=== PATIENT | female | born 1990 | race Asian ===

== ENCOUNTER 2024-12-14 10:38 | Emergency (ER) | payer SELFPAY ==
[2024-12-14 10:44] VITALS: BP 119/77; PULSE 67; RESP 19; TEMP 36.4; O2SAT 100
--- NOTE | 2024-12-14 10:44 | ED.GENADULT ---
HPI - General Adult General Chief complaint: Syncope Stated complaint: Faint/Cut Finger Time Seen by Provider: 12/14/24 10:40 Source: patient and RN notes reviewed Mode of arrival: ambulatory Limitations: no limitations History of Present Illness HPI narrative: 34-year-old female presents to the [facility] with and other family member with complaints of a superficial cut to the left 2nd finger as well as a syncopal episode that occurred about 10:10 today. reports that she was standing at the counter, passed out, fell to the floor, ?turned green, vomited and was out for approximately 10 minutes. denies her hitting head. denies that she did any type of shaking or abnormal body movements. Patient currently denies any chest pain, neck pain, back pain. Patient denied any symptoms prior to it, Denied chest pain, shortness of breath, dizziness, headache. Patient appears extremely drowsy on arrival. Does have a superficial cut to the radial aspect side of the 2nd finger left hand nail. Bleeding is controlled, clean by RN Onset (ago): minute(s) Related Data Home Medications ?Medication ?Instructions ?Recorded ?Confirmed ?Last Taken ?Type No Home Medications 12/14/24 12/14/24 Unknown History Allergies Allergy/AdvReac Type Severity Reaction Status Date / Time No Known Allergies Allergy Verified 12/14/24 10:54 Review of Systems Review of Systems: All systems reviewed & are unremarkable except as noted in HPI and below Constitutional: Constitutional: Reports no additional constitutional complaints ENT: Reports system reviewed and no additional complaints, except as documented Cardiovascular: Cardiovascular: Reports no additional cardiovascular complaints, Denies chest pain and Denies dyspnea Respiratory: Respiratory: Reports no additional respiratory complaints, Denies chest congestion, Denies cough and Denies dyspnea Musculoskeletal: Musculoskeletal: Reports no additional musculoskeletal complaints Integumentary/Breasts: Skin/Breast: Reports as per HPI Neurologic: Reports as per HPI, Reports confusion and Reports syncope PMFSH Comments At the time of my signature, I reviewed and agree with the nursing past medical, surgical, social, and family history. There is no relevant family history pertinent to the patient complaint. Exam Const: General: healthy appearing, no acute distress, well developed, tired appearing and well nourished Nutritional Appearance: well nourished Orientation/consciousness: oriented to person and oriented to place Limitations: language barrier ( interpreting) HENMT: Head: normal to inspection Mouth: Yes Normal oral and palatal mucosa present, Yes lip normal, Yes tongue normal and Yes moist mucous membranes Eyes: General: appearance normal, both eyes and all related structures Alignment and Position: alignment normal Neck: Neck: normal visual inspection, full ROM, no lymphadenopathy and no meningeal signs Chest: Chest palpation & inspection: normal inspection of the chest Resp: Effort & Inspection: normal respiratory effort and able to speak in complete sentences Auscultation: clear to auscultation bilaterally, no crackles, no rales, no rhonchi and no wheezes Cardio: Rate: bradycardic Back/Spine/Pelvis: Cervical Spine: cervical ROM normal and No Cervical spine tenderness Thoracic/Lumbar Spine: No thoracic spinal tenderness and No lumbar spinal tenderness Skin: General skin exam: normal color and no rashes or lesions noted Other: Superficial wound side of nail 2nd finger left hand Neuro: General: oriented to person, oriented to place, No gait normal, moves all extremities, no meningeal signs and no focal motor deficits Cranial nerves: Yes Equal, round and reactive pupils present, Yes Nystagmus not present, Yes Normal facial strength present, Yes facial symmetry and Yes Midline tongue present Cognition (Neuro): normal cognition Speech: No normal speech (delayed response) Gait exam (Neuro): Assisted gait required other (X2 ) Motor exam (neuro): Pronator motor function not present, No tremor noted and Normal motor muscle tone present throughout Pupils: Normal pupillary reactivity/response: bilateral Extrem: General: normal to inspection, full ROM and capillary refill normal Right upper extremity: normal to inspection and full ROM Left upper extremity: normal to inspection and full ROM Right lower extremity: normal to inspection and full ROM Left lower extremity: normal to inspection and full ROM Psych: Appearance: grossly normal and well kempt Mental Status: mental status grossly normal Speech and movement: Normal speech and movement present and Clear speech present Affect: normal affect Attitude: cooperative Course Course Level of Care: Express Care Visit Vital Signs Vital signs: Vital Signs Temperature 97.6 F 12/14/24 10:44 Pulse Rate 67 12/14/24 10:44 Respiratory Rate 19 12/14/24 10:44 Blood Pressure 119/77 12/14/24 10:44 Pulse Oximetry 100 12/14/24 10:44 Oxygen Delivery Room Air 12/14/24 10:44 Temperature 97.6 F 12/14/24 10:44 Pulse Rate 67 12/14/24 10:44 Respiratory Rate 12/14/24 10:44 Blood Pressure 119/77 12/14/24 10:44 Pulse Oximetry 100 12/14/24 10:44 Oxygen Delivery Room Air 12/14/24 10:44 Reviewed Medical Decision Making MDM Narrative Medical decision making narrative: Due to loss of consciousness advised EMS transfer, family members declined. Patient with a syncopal episode prior to arrival, 10 minutes loss of consciousness per family sending for higher level of care Transfer instructions reviewed with patient and family to go directly to the ER. All questions have been answered, and the patient deny any further questions with discharge and discharge plan. Some parts of this dictation were generated by voice recognition software and may contain typographical and/or grammatical inaccuracies. Differential Diagnosis Differential Diagnosis: Syncope, decreased blood sugar, orthostatic hypertension, bradycardia, fainted due to blood Medical Records Medical records reviewed: Yes I reviewed the external patient's medical records. Vital Signs Vital Signs: Vital Signs Temperature 97.6 F 12/14/24 10:44 Pulse Rate 12/14/24 10:44 Respiratory Rate 12/14/24 10:44 Blood Pressure 119/77 12/14/24 10:44 Pulse Oximetry 100 12/14/24 10:44 Oxygen Delivery Room Air 12/14/24 10:44 Temperature 97.6 F 12/14/24 10:44 Pulse Rate 12/14/24 10:44 Respiratory Rate 12/14/24 10:44 Blood Pressure 119/77 12/14/24 10:44 Pulse Oximetry 100 12/14/24 10:44 Oxygen Delivery Room Air 12/14/24 10:44 Reviewed Lab Data Lab results reviewed: Yes I reviewed the patient's lab results. Labs: Lab Results 12/14/24 Range/Units 10:49 POC Capillary Glucose 146 H (65-105) mg/dl Reviewed ECG Data EKG #1: Attestation: I personally reviewed and interpreted this ECG as follows: ECG completion date: 12/14/24 ECG completion time: 10:58 Prior ECG tracings: not available for review Interpretation: Sinus bradycardia, ventricle rate of 55, AR interval 144, QRS duration 94. No ST elevation or depression noted Critical Care Time Critical Care Time Critical Care Time: No Discharge Plan Discharge Clinical Impression: Syncope, Abrasion of finger of left hand Patient Disposition: Acute Care Hospital Condition: Stable Patient Language: Maltese Prescriptions: No Action No Home Medications Follow-up/Referrals: Jose Alberto,Mert Villalta MD [Primary Care Provider] -
[2024-12-14 10:53] LABS: Glucose Point of Care 146 mg/dl (65-105)
--- NOTE | 2024-12-14 10:56 | ECG_ITS ---
Test Date: 2024-12-14 10:58:28 Measurements Intervals [place] Rate: 55 P: 57 HI: 144 QRS: 34 QRSD: 94 T: 21 QT: 442 QTc: 424 Interpretive Statements SINUS BRADYCARDIA No previous ECG available for comparison Electronically Signed On 12-14-2024 14:25:27 CDT by Jasper Hernandez M.D.
== END 2024-12-14 11:04 | disposition short-term general hospital (02) ==
LOC: EXPGOSH 10:42
PROVIDERS: Emergency Provider Nurse Practitioner; PCP Internal Medicine Cardiovascular Disease
DX: R55 Syncope and collapse (principal); S60.411A Abrasion of left index finger, initial encounter; X58.XXXA Exposure to other specified factors, initial encounter
CPT/HCPCS: 82948; 93005; 99213; G0463

== ENCOUNTER 2024-12-14 11:35 | Emergency (ER) | payer SELFPAY ==
--- NOTE | ~2024-12-14 | XR_ITS ---
EXAMINATION: XR chest 2V 12/14/2024 13:34 INDICATION: Syncope PROCEDURE: 2 view chest COMPARISON: No prior studies for comparison. FINDINGS: The lungs are clear. The cardiomediastinal silhouette is within normal limits. There are no pleural effusions. There is no pneumothorax suspected. IMPRESSION: 1: NO ACUTE CARDIOPULMONARY DISEASE. Reviewed, dictated and finalized at location A.
--- NOTE | ~2024-12-14 | CT_ITS ---
EXAMINATION: CT brain wo con DATE: 12/14/2024 13:34 INDICATION: Syncope TECHNIQUE: Computed tomography (CT) of the head was performed without intravenous contrast. Sagittal and coronal reconstructions were performed. The mA was adjusted according to patient size. Iterative reconstruction technique was employed. The dose-length product was 605.33 mGy-cm. COMPARISON: None FINDINGS: No acute intracranial hemorrhage, acute infarction or abnormal extra axial fluid collection. Ventricl es are normal and symmetric. No mass/mass effect. The orbits, paranasal sinuses and mastoid air cells are normal. IMPRESSION: 1. Normal brain. Reviewed, dictated and finalized at location A. IMPRESSION: 1. Normal brain.
--- OUTSIDE RECORDS SUMMARY | 2024-12-14 11:40 | XMS_ITS | Clinical Summary ---
Author Organization [facility] Address [address] [place] [address] Care Team Providers Care Accounts Payable Administrator Name Role Phone Unavailable Primary Care Provider Unavailabl e Allergies No known active allergies Medications loratadine (CLARITIN) 10 mg tablet 1 Tab daily. 01/13/2014 Active ranitidine HCl (ZANTAC) 150 mg Capsule Take 1 Cap by mouth 2 times daily. 60 Cap 1 02/07/2014 Active BIOTIN/SILIC/CY BISWAS/LUT/MVMIN (DNJS-QHOUS-SIJ TEIN-LUT-MV,MIN ORAL) Take by mouth. Active ibuprofen (MOTRIN) 400 mg tablet Take 2 Tablets (800 mg) by mouth every 6 hours as needed for Pain or Temperature. 30 Tablet 08/20/2019 Active acetaminophen (TYLENOL) 500 mg tablet Take 2 Tablets (1,000 mg) by mouth every 6 hours as needed for Pain or Temperature. 30 Tablet 08/20/2019 Active Active Problems Problem Noted Date Diagnosed Date Skin rash 11/16/2014 Itchy scalp 11/16/2014 Breast lump 02/07/2014 GERD (gastroesophageal reflux disease) 4 Sore throat 01/19/2014 Family History Medical History Relation Name Comments Hypertension Father Heart Disease Maternal Grandmother Hypertension Mother Relation Name Status Comments Father Maternal Grandmother Mother Social History Tobacco Use Types Packs/Day Years Used Date Smoking Tobacco: Never Smokeless Tobacco: Never Alcohol Use Standard Drinks/Week Comments No 0 (1 standard drink = 0.6 oz pur e alcohol) Comments Unknown Sex and Gender Information Value Date Recorded Sex Assigned at Not on file Legal Sex Female 9:34 AM CDT Gender Identity Not on file Sexual Orientation Not on file Last Filed Vital Signs Vital Sign Reading Time Taken Comments Blood Pressure 113/69 08/20/2019 11:37 AM SENIOR JAVA DATA ARCHITECT Pulse 90 08/20/2019 12:51 PM SENIOR JAVA DATA ARCHITECT Temperature 37.6 C (99.6 F) 08/20/2019 12:51 PM SENIOR JAVA DATA ARCHITECT Respiratory Rate 16 08/20/2019 11:37 AM SENIOR JAVA DATA ARCHITECT Oxygen Saturation 97% 08/20/2019 11:37 AM SENIOR JAVA DATA ARCHITECT Inhaled Oxygen Concentration - - Weight 77.1 kg (170 lb) 08/20/2019 9:22 AM SENIOR JAVA DATA ARCHITECT Height 157.5 cm (5' 2) 08/20/2019 9:22 AM SENIOR JAVA DATA ARCHITECT Body Mass Index 31.09 08/20/2019 9:22 AM SENIOR JAVA DATA ARCHITECT Plan of Treatment Health Maintenance Due Date Last Done Comments HEPATITIS B VACCINES (1 of 3 - 19+ 3-dose series) 2007 HPV/Cotest (21-29) 2009 CERVICAL CANCER SCREENING 2018 HPV/Cotest (30-65) 2018 PAP SMEAR 2018 INFLUENZA VACCINE (#1) 2024 04/22/2018 DTAP/TDAP/TD VACCINES (2 - T d or Tdap) 06/01/2029 06/01/2019 HPV VACCINES Aged Out No longer eligi ble based on patient's age to complete this topic Insurance [facility]
--- OUTSIDE RECORDS SUMMARY | 2024-12-14 11:40 | XMS_ITS | Referral Summary ---
Author Organization [facility] Address [address] [place] [address] Care Team Providers Care Tax Appraiser Name Role Phone No, Physician Primary Care Provider [phone] Kenia Alfaro MD, Rolando Mccarty Unavailable Allergies No known active allergies Medications 28 mg iron- 800 mcg tablet Take 1 tablet by mouth daily 1 Active True Metrix Glucose Meter misc TEST FASTING AND 1 HOUR AFTER MEALS 0 Active pen needle, diabetic 33 gauge x 5/32 needle 1 INJECTION DAILY DIRECTED 30 each 1 Active PNV with ioepgvi-xsti-IL 27 mg iron- 1 mg tabletIndicatio ns:Vitamin Deficiency Prevention Take 1 tablet by mouth daily 30 tablet 11 1 Active acetaminophen 500 mg capsule Take 2 capsules (1,000 mg total) by mouth every 6 (six) hours as needed for pain 30 tablet 3 Active ibuprofen (ADVIL,MOTRIN) 600 mg tabletIndicatio ns:Cramps Take 1 tablet (600 mg total) by mouth every 6 (six) hours as needed for pain 30 tablet 3 Active polyethylene glycol (MIRALAX) 17 gram packetIndicatio ns:constipation Take 1 packet (17 g total) by mouth daily 15 packet 3 Active Active Problems Problem Noted Date Diagnosed Date care following vaginal delivery 07/28 Overview (07/30/2022): # ID: Afebrile. No signs/symptoms of infection. #COVID-19: Test not indicated # Heme: EBL 450 mL. No symptoms acute blood loss anemia. # CV/Pulm: Vital signs stable, within normal limits. # GI/: Tolerating PO. Voiding spontaneously. #GDMA2: regimen metformin and 5u of Levemir nightly. Fasting BG PPD1: 72. # Pain: Controlled with above regimen. # Post DVT prophylaxis: The patient has the following MAJOR risk factors none and the following MINOR risk factors BMI 30-39. SCDs ordered for VTE prophylaxis. # MOC: Declines until visit # MOF: Both formula and . Urine drug screen not indicated. Patient informed of results: N/A. # COVID Vaccination Status: Previously received # Disposition: Follow up task not sent. Desires discharge home today. Encounter for induction of labor 07/27/2022 Overview (07/28/2022): 1. Induction of labor for GDMA2. Current regimen: metformin and 5u Levemir nightly. On admission, BC 101 - insulin drip not indicated. OB insulin gtt ordered, for fasting BG ordered PP. Admit to L&D. Consents signed and placed in chart. Labs: CBC, RPR, T&S pending. Induction of labor with oxytocin. 2. FWB: Continuous monitoring. tracing category I 3. ID: 3rd trimester HIV (>28 wga) negative on 07/18. GBS positive, will start PCN on 07/09. RPR on admission: pending. Membrane Status: intact. 4. Indications for UDS: none. Verbal consent obtained for UDS: Not indicated 5. MOF: Plans to both breast and formula feed. Urine drug screen not indicated. Patient informed of results: N/A 6. MOC: Undecided on contraception. 7. Pain management: Desires epidural during painful contractions. 8. Post DVT prophylaxis: The patient has the following MAJOR risk factors none and the following MINOR risk factors BMI 30-39. SCDs will be ordered for VTE prophylaxis . 9. COVID Vaccine Status: Not assessed 10. COVID Test Status: Test not indicated Leakage of amniotic fluid 09/29/2020 Gestational diabetes mellitus (GDM), antepartum 08/29/2020 Overview (09/25/2020): Demetrius was diagnosed with GDM by a 1 hr GT > 200. Previously counseled Current regimen: Metformin 1000mg ER BID, NPH 10u qHS added 09/25/2020 Plan: - S/p diabetes education/nurtition - Recommend growth US every 4 weeks. - Recommend surveillance with once weekly NSTs starting at 32 weeks - Recommend IOL at 39 weeks for A2GDM- pt will discuss with primary OB tomorrow - GTT (6-12 weeks PP). Recommend testing with primary OB and delivery at 39 weeks. Spoke with RN with Dr. Aquino to review recommendations. Assessment & Plan (09/25/2020 1:35 PM LIDAR ANALYST): BS log reviewed with elevated fastings and breakfast PCs. Will start NPH 10u qHS today. hypoglycemic precautions reviewed. MFM RN to room for insulin teaching. Rx placed. Patient has appointment with primary OB tomorrow and will discuss timing for IOL. Assessment & Plan (09/11/2020 6:10 PM LIDAR ANALYST): BS log reviewed with Dr. Escudero. Plan for metformin ER 1000mg BID. Discussed importance of limiting high carb foods such as rice and noodles. Patient voiced understanding and will send a BS log in 1 week for review. Repeat visit and growth in 2 weeks. Pt aware if BS do not normalize following increase in metformin we will need to add insulin. Supervision of high-risk , unspecified trimester 08/29/2020 Overview (09/25/2020): [x] Co-management vs. [] Full MFM Care; [] Red Team [x] Blue Team Referring Provider: Rolando Aquino [phone] [] or Medicare Insurance [x] Dating Criteria: US 02/29/20 with ELIER 10/07/20 [x] Labs: Rh [O+], Ab [negative], Rubella [immune], HIV [non-reactive], HepBSAg [non-reactive], RPR [non-reactive], GC/CT [negative/negative] [x] Genetic Screenin04/25/20: Quad Screen: negative [x] CBC/Hgb 12.8/43.7/plt 290 [] Early 1hr GTT (if indicated) [x] UCx: 02/29/20 no growth [x] Pap: 02/29/20 NILM; HPV negative [] LD ASA (if indicated) starting at 12 weeks: [] PNBHS referral (if indicated) 2nd Tri Labs: [x] Anatomy ultrasound: [x] CBC/1hr gtt at 24-28wks: 07/06/20: 11.2/36.8/plt 246; GTT 243 [x] Flu Shot (Mar-Jun): given 06/05/20 [x] Tdap (27-36wks): given 07/06/20 3rd Tri Labs: per primary OB Counselling [x] MOD: Anticipate , recommend 39 week induction [x] Place of delivery: PVT with Dr. Aquino 02/09/2020 Acne 12/02/2017 Allergic rhinitis 11/25/2017 Obesity 11/25/2017 Skin rash 11/16/2014 Itchy scalp 11/16/2014 Breast lump 02/07/2014 GERD (gastroesophageal reflux disease) 4 Sore throat 01/19/2014 Abnormal liver function tests 11/04/2009 Resolved Problems Problem Noted Date Diagnosed Date Resolved Date care following vaginal delivery 09/29/2020 07/28/2022 Overview (10/01/2020): #GDMA2: fasting glucose PPD#1 106. For GTT at PPV. # ID: Afebrile. No signs/symptoms of infection. #COVID-19: Declined # Heme: EBL 550 mL. No symptoms acute blood loss anemia. # CV/Pulm: Vital signs stable, within normal limits. # GI/: Tolerating PO. Voiding spontaneously. # Pain: Controlled with above regimen. # Post DVT prophylaxis: The patient has the following MAJOR risk factors none and the following MINOR risk factors BMI 30-39. SCDs ordered for VTE prophylaxis. # MOC: Pt considering DMPA - declines prior to discharge, will discuss at appt. # MOF: # Disposition: Follow up to be scheduled with primary OB. Desires discharge home today. Immunizations Immunization Administration Dates Next Due Influenza, Unspecified 05/30/2020 [employer] ([employer]) SARS-CoV-2 Vaccination 05/07/2022 MMR 10/01/2020(Deferred: No longer n eeded) Social History Tobacco Use Types Packs/Day Years Used Date Smoking Tobacco: Never Smokeless Tobacco: Never Alcohol Use Standard Drinks/Week Comments Never 0 (1 standard drink = 0.6 oz pur e alcohol) Social Connection and Isolat ion Panel [NHANES] Answer Date Recorded In a typical week, how many times do you talk on the phone with family, friends, or neighbors? More than three times a week 07/29/2022 How often do you get togethe r with friends or relatives? More than three times a week 07/29/2022 How often do you attend chur ch or roman catholic services? Never 07/29/2022 Do you belong to any clubs o r organizations such as anabaptist groups, unions, fraternal or athletic groups, or school groups? No 07/29/2022 How often do you attend meet ings of the clubs or organizations you belong to? Never 07/29/2022 Are you , , di vorced, , never , or living with a partner? 07/29/2022 AUDIT-C Answer Date Recorded Q1: How often do you have a drink containing alc ohol? Never 09/29/2020 Average Number of Drinks Not on file 021 Frequency of Binge Drinking Not on file 09/18 Overall Financial Resource Strain (CARDIA) Answe r Date Recorded How hard is it for you to pa y for the very basics like food, housing, medical care, and heating? Not very hard 07/29/2022 Hunger Vital Sign Answer Date Recorded Within the past 12 months, y ou worried that your food would run out before you got the money to buy more. Never true 07/29/19 23 Within the past 12 months, t he food you bought just didn't last and you didn't have money to get more. Never true 07/29/2022 PRAPARE - Transportation Answer Date Re corded In the past 12 months, has l ack of transportation kept you from medical appointments or from getting medications? No 03/2023 In the past 12 months, has l ack of transportation kept you from meetings, work, or from getting things needed for daily living? No 07/29/2022 Housing Stability Vital Sign Answer Thanh e Recorded In the last 12 months, was t here a time when you were not able to pay the mortgage or rent on time? No 07/29/2022 In the last 12 months, how many places have you lived? 2 07/29/2022 In the last 12 months, was t here a time when you did not have a steady place to sleep or slept in a mcc (including now)? No 07/29/2022 Personal Safety Answer Date Recorded Getting School Help Needed Not on file 07/28 Comments No Sex and Gender Information Value Date Recorded Sex Assigned at Not on file Legal Sex Female 4:10 PM CDT Gender Identity Not on file Sexual Orientation Not on file Last Filed Vital Signs Vital Sign Reading Time Taken Comments Blood Pressure 122/80 07/30/2022 9:10 AM LIDAR ANALYST Pulse 75 07/30/2022 9:10 AM LIDAR ANALYST Temperature 36.7 C (98.1 F) 07/30/2022 9:10 AM LIDAR ANALYST Respiratory Rate 16 07/30/2022 9:10 AM LIDAR ANALYST Oxygen Saturation 98% 07/30/2022 9:10 AM LIDAR ANALYST Inhaled Oxygen Concentration - - Weight 91.5 kg (201 lb 12.8 oz) 023 11:55 PM LIDAR ANALYST Height 157.5 cm (5' 2) 07/27/2022 11:5 5 PM LIDAR ANALYST Body Mass Index 36.91 07/27/2022 11:55 PM LIDAR ANALYST Plan of Treatment Not on file Procedures Procedure Name Priority Date/Time Associated Diagnosis Comments EGFR STAT 07/27/2022 9:06 PM LIDAR ANALYST HEPATITIS C ANTIBODY Routine 02/29/2020 from Last 3 Months or Most Recently Relevant to Health Maintenance Results * eGFR (07/27/2022 9:06 PM LIDAR ANALYST) eGFR >90 90 - 130 mL/min/1. 73 m2 [facility] Comment: Interpretive Data Reference Interval Normal >/= 90 mL/min/1.73m2 Mildly decreased* 60 - 89 mL/min/1.73m2 Mildly to moderately decreased 45 - 59 mL/min/1.73m2 Moderately to severely decreased 30 - 44 mL/min/1.73m2 Severely decreased 15 - 29 mL/min/1.73m2 Kidney Failure < 15 mL/min/1.73m2 *Relative to young adult level Estimated glomerular filtration rate is determined by the 2020 CKD-EPI equation recommended by the National Kidney Foundation (A Unifying Approach to GFR Estimation: Recommendations of the NKF-ASK Task Force on Reassessing the Inclusion of Race in Diagnosing Kidney Disease, JASN 2020). The CKD-EPI equation should not be used for patients with unstable renal function and has not been validated in children and those over 70. Current interpretive data was last reviewed 2021. Blood 07/27/2022 9:06 PM LIDAR ANALYST 07/27/2022 9:53 PM LIDAR ANALYST us Dena Rivas MD LAB BLOOD ORDERABLES Fi nal Result [facility] Department [place] [address] * Hepatitis C antibody (02/29/2020) SCRIBED HCV ab non-reacti ve Blood specimen (specimen) us Rolando Aquino Jr., MD LAB MICROBIOLOGY - GENERAL ORDERABLES Final Result from Last 3 Months or Most Recently Relevant to Health Maintenance Insurance [facility] DUAL COMPLETE [id number] [facility] MEDICARE Address: [address] [place] [id number] [place] [address] Advance Directives For more information, please contact: [phone] * Full Code (Latest Code Status on File) Date Activated Date Inactivated Comments 07/28/2022 4:50 AM 07/30/2022 5:19 PM * Full Code Date Activated Date Inactivated Comments 07/27/2022 8:43 PM 07/28/2022 4:50 AM Full CPR in ca se of cardiopulmonary arrest * Full Code Date Activated Date Inactivated Comments 09/29/2020 7:35 AM 10/01/2020 9:37 PM * Full Code Date Activated Date Inactivated Comments 09/29/2020 1:57 AM 09/29/2020 7:35 AM Full CPR in case of cardiopulmonary arrest Care Teams Tax Appraiser Relationship Specialty Start Date End Date No, Physician PCP - General 04/25/20 Rolando Aquino Jr., MD [address] [place] [address] Referring Physician Obstetrics and Gynecology 04/25/20
--- OUTSIDE RECORDS SUMMARY | 2024-12-14 11:40 | XMS_ITS | Clinical Summary ---
Author Organization [facility] Address [address] [id number] Phone Care Team Providers Care Manager Software Name Role Phone Mehran Mera NP Primary Care Provider [phone] Allergies No known active allergies Medications Lancets 33G misc Lancets 33G Miscellaneous QTY: 100 each Days: 30 Refills: 2 Written: 05/12/22 Patient Instructions: use 1 lancet to check blood glucose fasting and 1hr after all meals 05/12/20 22 Active loratadine (Claritin) 10 MG tablet Take 1 tablet by mouth in the morning. 01/14/20 14 Active cetirizine (ZyrTEC) 10 MG tablet Take 1 tablet (10 mg) by mouth in the morning. 30 tablet 2 09/19/19 Active phentermine 15 MG capsule Take 15 mg by mouth before breakfast. 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 ) ([facility] 07/03/2022 Overview (07/03/2022): Given triamcinolone ointment rx Susceptible to varicella (no n-immune), currently ([facility]) 03/18/2022 ([facility]) 10/28/2021 Supervision of high-risk pre gnancy, unspecified trimester ([facility]) 08/29/2020 Gestational diabetes mellitus (GDM), antepartum ([facility]) 08/03/2020 Overview (07/03/2022): Continue metformin 1000 mg BID Add levemir 2 units once daily (had rec'd 5 last visit, but did not start because she was unsure how to use pen, RN showed her today and based on glucose log, the dose was reduced) RTC 2 weeks. NST baseline 135, moderate variability, + accels, no decels, reactive and reassuring today, MARIETTA wnl. Arranging testing at [facility]; delay on their end after order was sent at last visit. Allergic rhinitis 11/25/2017 Obesity 11/25/2017 GERD (gastroesophageal reflux disease) 4 Resolved Problems Problem Noted Date Diagnosed Date Resolved Date Supervision of normal first ([facility]) 02/29/2020 05/28/2022 Encounters Date Type Department Care Team Description 10/26/[address] [address] Claudia Jennings Appointment Request from Last 3 Months Immunizations Immunization Administration Dates Next Due Influenza, injectable, quadr ivalent, contains preservative 06/05/2020 Influenza, split virus, triv alent, injectable, contains preservative 05/28/2022 Tdap 05/08/2022,07/06/2020 Social History Tobacco Use Types Packs/Day Years Used Date Smoking Tobacco: Never Assessed Comments No Sex and Gender Information Value Date Recorded Sex Assigned at Not on file Legal Sex Female 4:09 PM EDT Gender Identity Female 04/21/2022 4:09 PM EDT Sexual Orientation Straight 04/21/2022 4: 09 PM EDT Last Filed Vital Signs Vital Sign Reading Time Taken Comments Blood Pressure 103/72 08/21/2022 10:19 AM CHIROPRACTOR ASSISTANT Pulse 91 08/21/2022 10:19 AM CHIROPRACTOR ASSISTANT Temperature 36.7 C (98 F) 08/21/2022 10:19 AM CHIROPRACTOR ASSISTANT Respiratory Rate 16 02/29/2020 2:51 PM CDT Oxygen Saturation 98% 08/21/2022 10:19 AM CHIROPRACTOR ASSISTANT Inhaled Oxygen Concentration - - Weight 79.9 kg (176 lb 3.2 oz) 08/21/2022 10:19 AM CHIROPRACTOR ASSISTANT Height 154.9 cm (5' 1) 08/21/2022 10:19 AM CHIROPRACTOR ASSISTANT Body Mass Index 33.29 08/21/2022 10:19 AM CHIROPRACTOR ASSISTANT Plan of Treatment Health Maintenance Due Date Last Done Comments MMR Vaccines (1 of 1 - Standard series) 1989 Varicella Vaccines (1 of 2 - 13+ 2-dose series) 2001 Well Adult Exam (Age 18+ Annual Physical) 2006 Hepatitis B Vaccines (1 of 3 - 19+ 3-dose series) 2007 Pap Smear 02/28/2023 02/29/2020 COVID-19 Vaccine ( - season) 2024 05/07/2022, 03/01/2021, 01/25/2021 Cervical Cancer Screening 02/28/2025 HPV/Cotest 02/28/2025 02/29/2020 Influenza Vaccine (Season Ended) 2025 05/28/2022, 06/05/2020, 05/30/2020, Additional history exists Diabetes Screening 08/21/2025 08/21/2022, 1 , 03/18/2022, Additional history exists DTaP/Tdap/Td Vaccines (4 - Td or Tdap) 05/08/2032 05/08/2022, 07/06/2020, 06/01/2019 Zoster Vaccines (1 of 2) 2038 Hepatitis B Screening Completed 02/29/2020 Hepatitis C Screening Completed 03/18/2022, 020 HIV Screening Completed 07/18/2022, 02/19, 02/29/2020 HIB Vaccines Aged Out No longer eligi ble based on patient's age to complete this topic HPV Vaccines Aged Out No longer eligi ble based on patient's age to complete this topic Hepatitis A Vaccines Aged Out No long er eligible based on patient's age to complete this topic IPV Vaccines Aged Out No longer eligi ble based on patient's age to complete this topic Meningococcal B Vaccine Aged Out No l onger eligible based on patient's age to complete this topic Meningococcal Vaccine Aged Out No anthony thom eligible based on patient's age to complete this topic Pneumococcal Vaccine: 0-49 Years Aged Out No longer eligible based on patient's age to complete this topic Rotavirus Vaccines Aged Out No longer eligible based on patient's age to complete this topic Procedures Procedure Name Priority Date/Time Associated Diagnosis Comments GLUCOSE TOLERANCE TEST, 3 SPECIMENS, (75G) Routine 08/21/2022 9:33 AM CHIROPRACTOR ASSISTANT HEPATITIS C AB W/RFL RNA, PCR W/RFL GENOTYPE,LIPA Routine 03/18/2022 2:47 PM CDT HIV 1/2 ANTIGEN/ANTIBODY,FOU RTH GENERATION W/RFL Routine 03/18/2022 2:47 PM CDT HPV RNA, HR E6/E7, TMA Routine 02/29/2020 4:12 PM CDT THINPREP TIS PAP Routine 02/29/2020 4:12 PM CDT HEPATITIS B SURFACE ANTIGEN W/REFL CONFIRM Routine 02/29/2020 12:00 AM CDT from Last 3 Months or Most Recently Relevant to Health Maintenance Results * (ABNORMAL) GLUCOSE TOLERANCE TEST, 3 SPECIMENS, (75G) (08/21/2022 9:33 AM CHIROPRACTOR ASSISTANT) GLUCOSE, FASTING 122(H) 65 - 99 mg/dL [facility] GLUCOSE 1HR P 75GM 160 mg/dL [facility] GLUCOSE 2HR P 75GM 123 <140 mg/dL [facility] COMMENT [facility] Comment: [place] [employer] Diagnostic Criteria for Diabetes Mellitus Glucose Value (mg/dL) Interpretation Fasting 1 Hr 2 Hr Tolerance Tolerance --------- --------- --------- Normal <100 Not Established <140 Impaired Fasting 100-125 Impaired Tolerance 140-199 Diabetes >XQ=168* >HJ=336* * Must be confirmed by testing on a subsequent day. 08/21/2022 9:33 AM CHIROPRACTOR ASSISTANT 08/21/2022 9:34 AM CHIROPRACTOR ASSISTANT Coral Chaudhary MD LAB BLOOD ORDERABLES Final Result Performing Organization Address [facility]/ZIP Co de Phone Number [facility] [address] [place] [address], * HIV 1/2 ANTIGEN/ANTIBODY,FOURTH GENERATION W/RFL (03/18/2022 2:47 PM CDT) HIV 1/2 AG/AB NON-REACT JESIKA NON-REACT JESIKA [facility] Comment:HIV-1 antigen and HI V-1/HIV-2 antibodies were not detected. There is no laboratory evidence of HIV infection. PLEASE NOTE: This information has been disclosed to you from records whose confidentiality may be protected by state law. If your state requires such protection, then the state law prohibits you from making any further disclosure of the information without the specific written consent of the person to whom it pertains, or as otherwise permitted by law. A general authorization for the release of medical or other information is NOT sufficient for this purpose. For additional information please refer to http://education.FilmDoo/faq/VGE486 (This link is being provided for informational/ educational purposes only.) The performance of this assay has not been clinically validated in patients less than 2 years old. 03/18/2022 2:47 PM CDT 03/18/2022 2:47 PM CDT Emile Santos MD LAB BLOOD ORDERABLES Final Re sult Performing Organization Address [facility]/ZIP Co de Phone Number [facility] * HEPATITIS C AB W/RFL RNA, PCR W/RFL GENOTYPE,LIPA (03/18/2022 2:47 PM CDT) SIGNAL TO CUT-OFF 0.01 <1.00 [facility] Comment:HCV antibody was non -reactive. There is no laboratory evidence of HCV infection. In most cases, no further action is required. However, if recent HCV exposure is suspected, a test for HCV RNA (test code 38089) is suggested. For additional information, please refer to http://education.XL Video/faq/QTJ149 (This link is being provided for informational/ educational purposes only.) HEPATITIS C AB NON-REACTI VE NON-REACT JESIKA [facility] 03/18/2022 2:47 PM CDT 03/18/2022 2:47 PM CDT Emile Santos MD LAB BLOOD ORDERABLES Final Re sult Performing Organization Address [facility] de Phone Number [facility] * HPV RNA, HR E6/E7, TMA (02/29/2020 4:12 PM CDT) HPV RNA, HR E6/E7, TMA Not Detected Not Detected [facility] Comment:This test was perfor med using the APTIMA HPV Assay ([employer] This assay detects E6/E7 viral messenger RNA (mRNA) from 14 high-risk HPV types (16,18,31,33,35,39,45,51,52,56,58,59,66,68). The analytical performance characteristics of this assay have been determined by [employer]. The modifications have not been cleared or approved by the FDA. This assay has been validated pursuant to the CLIA regulations and is used for clinical purposes. 02/29/2020 4:12 PM CDT 02/29/2020 4:12 PM CDT Rolando Aquino Jr., MD LAB MICROBIOLOGY - GENERAL ORDERABLES Final Result Performing Organization Address [facility] Co de Phone Number [facility] * THINPREP TIS PAP (02/29/2020 4:12 PM CDT) COMMENT [facility] Comment:EXPLANATORY NOTE: Th e Pap is a screening test for cervical cancer. It is not a diagnostic test and is subject to false negative and false positive results. It is most reliable when a satisfactory sample, regularly obtained, is submitted with relevant clinical findings and history, and when the Pap result is evaluated along with historic and current clinical information. STATEMENT OF ADEQUACY [facility] Comment:Satisfactory for gregory luation. Endocervical/transformation zone component present. TRIMMER TAILER [facility] Comment:LMT, CT(ASCP) CT scr eening location: [address] [place] [address] CLINICAL INFORMATION [facility] Comment: PREV. BX NONE [facility] PAP SMEAR [facility] Comment:Negative for intraep ithelial lesion or malignancy. LMP [facility] Comment:N/A SOURCE [facility] Comment:Cervix COMMENT [facility] Comment:This Pap test has be en evaluated with computer assisted technology. PREV. PAP [facility] Comment:NONE 02/29/2020 4:12 PM CDT 02/29/2020 4:12 PM CDT Rolando Aquino Jr., MD LAB MICROBIOLOGY - GENERAL ORDERABLES Final Result Performing Organization Address [facility] Co de Phone Number [facility] * HEPATITIS B SURFACE ANTIGEN W/REFL CONFIRM (02/29/2020 12:00 AM CDT) HEPATITIS B SURFACE AG NON-REACTI VE NON-REACTI VE [facility] 02/29/2020 02/29/2020 Rolando Aquino Jr., MD LAB BLOOD ORDERAB LES Final Result Performing Organization Address [facility]/ZIP Co de Phone Number [facility] from Last 3 Months or Most Recently Relevant to Health Maintenance Insurance [facility] Care Teams Manager Software Relationship Specialty Start Date End Date Mehran Mera NP [address] [place] [address] PCP - General Family Medicine 05/21/23
--- OUTSIDE RECORDS SUMMARY | 2024-12-14 11:40 | XMS_ITS | Clinical Summary ---
Author Organization [facility] Address [address] [place] [address] Care Team Providers Care Tire And Tube Repairer Name Role Phone No, Physician Primary Care Provider [phone] Kenia Alfaro MD, Rolando Mccarty Unavailable Allergies No known active allergies Medications 28 mg iron- 800 mcg tablet Take 1 tablet by mouth daily 1 Active True Metrix Glucose Meter misc TEST FASTING AND 1 HOUR AFTER MEALS 0 Active pen needle, diabetic 33 gauge x 5/32 needle 1 INJECTION DAILY DIRECTED 30 each 1 Active PNV with [id number]-oppx-HU 27 mg iron- 1 mg tabletIndicatio ns:Vitamin [...] recommendations. Assessment & Plan (09/25/2020 1:35 PM EMBOSSING CALENDER OPERATOR): BS log reviewed with elevated fastings and breakfast PCs. Will start NPH 10u qHS today. hypoglycemic precautions reviewed. MFM RN to room for insulin teaching. Rx placed. Patient has appointment with primary OB tomorrow and will discuss timing for IOL. Assessment & Plan (09/11/2020 6:10 PM EMBOSSING CALENDER OPERATOR): BS log reviewed with Dr. Escudero. Plan [...] [x] Blue Team Referring Provider: Rolando Aquino [phone] [] or Medicare Insurance [x] Dating Criteria: [...] Administration Dates Next Due Influenza, Unspecified 05/30/2020 [employer]) SARS-CoV-2 Vaccination 05/07/2022 MMR 10/01/2020(Deferred: No longer n eeded) Medical History Medical History Date Comments Gestational diabetes Family History Medical History Relation Name Comments Diabetes Mother Relation Name Status Comments Father Alive Mother Alive Social History Tobacco Use Types Packs/Day Years [...] often do you attend chur ch or islam services? Never 07/29/2022 Do you belong to any clubs o r organizations such as alevism groups, unions, fraternal or athletic groups, or [...] Average Number of Drinks Not on file Frequency of Binge Drinking Not on file [...] place to sleep or slept in a correction (including now)? No 07/29/2022 Personal Safety Answer Date Recorded Getting School Help Needed Not on file 07/28 Comments No Sex and Gender Information Value Date Recorded Sex Assigned at Not on file Legal Sex Female 4:10 PM CDT Gender Identity Not on file Sexual Orientation Not on file Obstetrics History Para Term AB IAB SAB Ectopic Multiple Livin g Live Births 2 2 2 0 2 2 Date Outcome GA Total Labor Labor/2nd/3rd Weight Sex Type Anes PTL Stacie A1 A5 Name Clin 2020 Term 38w 6d 0h 20m 0h 15m/0h 05m 3.27 kg (7 lb 3.3 oz) F Vag-S pont Combin ed Spinal /Epidu ral N Livin g 8 9 NGUYE N,GIR [facility] Complications:None Delivery Location:[facility] Main C amp[facility] ([facility] 58LD) 2022 Term 39w 4d 0h 08m 0h 03m/0h 05m 3.22 kg (7 lb 1.6 oz) M Vag-S pont Epidur al N Livin g 8 9 NGUYE N,BOY Laura Knott MD Complications:None Delivery Location:[facility] Main C amp[facility] ([facility]) Last Filed Vital Signs Vital Sign Reading Time Taken Comments Blood Pressure 122/80 07/30/2022 9:10 AM EMBOSSING CALENDER OPERATOR Pulse 75 07/30/2022 9:10 AM EMBOSSING CALENDER OPERATOR Temperature 36.7 C (98.1 F) 07/30/2022 9:10 AM EMBOSSING CALENDER OPERATOR Respiratory Rate 16 07/30/2022 9:10 AM EMBOSSING CALENDER OPERATOR Oxygen Saturation 98% 07/30/2022 9:10 AM EMBOSSING CALENDER OPERATOR Inhaled Oxygen Concentration - - Weight 91.5 kg (201 lb 12.8 oz) 023 11:55 PM EMBOSSING CALENDER OPERATOR Height 157.5 cm (5' 2) 07/27/2022 11:5 5 PM EMBOSSING CALENDER OPERATOR Body Mass Index 36.91 07/27/2022 11:55 PM EMBOSSING CALENDER OPERATOR Plan of Treatment Health Maintenance Due Date Last Done Comments Albumin Creatinine Ratio, Urine 1988 Cervical Cancer Screening 1988 Depression Screening 1988 Hemoglobin A1C 1988 Dilated Eye Exam 1988 Foot Exam 1988 Lipid Panel 1988 Varicella Vaccines (1 of 2 - 13+ 2-dose series) 2001 Hepatitis B Screening 2006 Regular Well Visit/Exam 18-64 2006 Pneumococcal vaccine <65 (1 of 2 - PCV) 2007 eGFR 07/27/2023 07/27/2022, 07/18/2022 Covid-19 Vaccine ( - season) 2024 05/07/2022, 03/01/2021, 01/25/2021 Influenza Vaccine (Season Ended) 2025 05/28/2022, 06/05/2020, 05/30/2020, Additional history exists DTaP/Tdap/Td Vaccine (4 - Td or Tdap) 05/08/2032 05/08/2022, 07/06/2020, 06/01/2019 Hepatitis C Screening Completed 02/29/2020 HPV Vaccines Aged Out No longer eligi ble based on patient's age to complete this topic Procedures Procedure Name Priority Date/Time Associated Diagnosis Comments EGFR STAT 07/27/2022 9:06 PM EMBOSSING CALENDER OPERATOR HEPATITIS C ANTIBODY Routine 02/29/2020 from Last 3 Months or Most Recently Relevant to Health Maintenance Results * eGFR (07/27/2022 9:06 PM EMBOSSING CALENDER OPERATOR) eGFR >90 90 - 130 mL/min/1. 73 m2 ESHA [facility] Comment: Interpretive Data Reference Interval Normal >/= [...] last reviewed 2021. Blood 07/27/2022 9:06 PM EMBOSSING CALENDER OPERATOR 07/27/2022 9:53 PM EMBOSSING CALENDER OPERATOR us Dena Rivas MD LAB BLOOD ORDERABLES Fi nal Result Performing Organization Address City/State/ZIP Co pr Phone Number [facility] [place] [address] * Hepatitis C antibody (02/29/2020) SCRIBED HCV ab non-reacti ve Blood specimen (specimen) us Rolando Aquino Jr., MD LAB MICROBIOLOGY - GENERAL ORDERABLES Final Result from Last 3 Months or Most Recently Relevant to Health Maintenance Insurance [facility] DUAL COMPLETE [id number] [facility] MEDICARE Address: [address] [address] [place] [address] Advance Directives For more information, please contact: [phone] * Full Code (Latest Code Status on [...] in case of cardiopulmonary arrest Care Teams Tire And Tube Repairer Relationship Specialty Start Date End Date No, Physician PCP - General 04/25/20 Rolando Aquino Jr., MD [address] [place] [id number] Referring Physician Obstetrics and Gynecology 04/25/20
--- OUTSIDE RECORDS SUMMARY | 2024-12-14 11:40 | XMS_ITS | Clinical Summary ---
Author Organization [facility] Address [address] [place] [address] Care Team Providers Care Building Rental Superintendent Name Role Phone Shruthi Carmen MD Primary Care Provider [phone] Source Comments [facility],non-owned Affiliates and Associated Physician Practices is amultiple site organization consisting of ambulatory clinics and hospital sitesin [place], [place], [place] and [place]. This disclosure is being madepursuant to the Care Everywhere program and may not contain all information available regarding this patient. Last updated 18.[facility] [place] Social History Tobacco Use Types Packs/Day Years Used Date Smoking Tobacco: Never Assessed Comments Unknown Sex and Gender Information Value Date Recorded Sex Assigned at Not on file Legal Sex Female 11:28 AM CDT Gender Identity Not on file Sexual Orientation Not on file Plan of Treatment Health Maintenance Due Date Last Done Comments PAP SMEAR 1988 HIV SCREENING 2003 HEPATITIS C SCREENING 03/09/2006 DTAP/TDAP/TD VACCINES (1 - Tdap) 2007 HEPATITIS B VACCINE (1 of 3 - 19+ 3-dose series) 2007 COVID-19 VACCINE (2 - season) 2024 05/07/2022 DEPRESSION SCREENING 07/21/2024 INFLUENZA VACCINE (Season Ended) 2025 05/28/2022, 06/05/2020, 05/30/2020, Additional history exists ZOSTER VACCINE (1 of 2) 2038 HIB VACCINE Aged Out No longer eligi ble based on patient's age to complete this topic HPV VACCINE Aged Out No longer eligi ble based on patient's age to complete this topic MENINGOCOCCAL (Group B) VACCINE SHARED DECISION-MAKING Aged Out No longer eligible based on patient's age to complete this topic MENINGOCOCCAL GROUPS A/C/Y/W VACCINE Aged Out No longer eligible based on patient's age to complete this topic PNEUMOCOCCAL VACCINE Aged Out No long er eligible based on patient's age to complete this topic Insurance [facility] Care Teams Building Rental Superintendent Relationship Specialty Start Date End Date Shruthi Carmen MD [address] [place] [address] PCP - General 02/09/20
[2024-12-14 11:43] VITALS: BP 112/75; PULSE 67; RESP 18; TEMP 36.3; O2SAT 100
--- NOTE | 2024-12-14 13:14 | ED_ITS ---
HPI - Syncope General Chief Complaint: Syncope <LANDON Wolf Last Filed: 12/16/24 18:16> Stated Complaint: Syncope this AM <LANDON Wolf Last Filed: 12/16/24 18:16> Time Seen by Provider: 12/14/24 13:14 <LANDON Wolf Last Filed: 12/16/24 18:16> Focused HPI: Patient is a 34 y/o female who presents to the ED with c/o syncope. at bedside curriculum assistant principal providing information. Reports patient was seen in the kitchen this morning and got her right 2nd finger on her nail bed. She sat down and a bandage to the finger. When she went to stand up, he states her face became green. she appeared as though she was about to fall. He helped her to a chair. He then states that she lost consciousness. He reported loss of consciousness for about 10 minute. The patient did not fall to the ground. denies any seizure-like activity. No history of seizures. Denies incontinence. Denies tongue biting. No previous history of syncope. He states that the patient seems very tired currently, but is otherwise at her baseline. He does note that they drove from [place] last night and did not sleep well. Patient denies dizziness/lightheadedness, pain, CP, SOB, NOVOA, vision changes, focal weakness. GENERAL: Well-appearing, obese with BMI of 34.4, and in no acute distress. HEAD: Normocephalic, atraumatic. CHEST: Clear to auscultation. ?No respiratory distress. HEART: Regular rate and rhythm.? SKIN: Small superficial lac through nailbed of R 2nd digit, no active bleeding. NEURO: ?Alert and oriented x3. Somewhat somnolent appearing but easily arousable. Able to follow commands. Equal door liner helper strength sunny. No appreciable focal deficits. Steady gait. Patient screened in triage and initial orders placed.? ?Additional care and disposition to be based upon?diagnostic testing and treatment. <LANDON Wolf Filed: 12/16/24 18:16> Source: patient and family <LANDON Wolf Filed: 12/16/24 18:16> Mode of arrival: ambulatory <Chantell Leal PA-C - Last Filed: 12/16/24 18:16> Limitations: no limitations <Chantell Leal PA-C - Last Filed: 12/16/24 18:16> History of Present Illness HPI narrative: I agree with the above HPI <Saleem Del Rio MD - Last Filed: 12/31/24 19:13> Related Data Allergies/Adverse Reactions: Allergies Allergy/AdvReac Type Severity Reaction Status Date / Time No Known Allergies Allergy Verified 12/14/24 10:54 <Chantell Leal PA-C - Last Filed: 12/16/24 18:16> Review of Systems 2 Review of Systems: All systems reviewed & are unremarkable except as noted in HPI and below <Saleem Del Rio MD - Last Filed: 12/31/24 19:13> Exam 2 Narrative: APPEARANCE: Well appearing, no pain, no distress, well-nourished. HEAD: normocephalic, atraumatic. EYES: PERRLA/EOMI, conjunctivae clear. NOSE: Normal no drainage EARS:TMS clear with good light reflex. THROAT: Pharynx clear, no exudate. NECK: Supple. No adenopathy, no masses. RESPIRATORY: Airway patent, respirations nonlabored. Clear to auscultation bilaterally, no rales, rhonchi, wheezing. CARDIOVASCULAR: Regular rate and rhythm without murmurs rubs or gallops. ABDOMINAL: Soft, nontender, nondistended, normal bowel sounds MUSCULOSKELETAL: Moves all extremities. Strength/ROM intact, No edema, No calf tenderness. NEURO: Alert. Cranial nerves II through XII intact. SKIN: Warm, dry. Normal Color <Saleem Del Rio MD - Last Filed: 12/31/24 19:13> Course Vital Signs Vital signs: Vital Signs Temperature 97.4 F L 12/14/24 11:43 Pulse Rate 67 12/14/24 11:43 Respiratory Rate 18 12/14/24 11:43 Blood Pressure 112/75 12/14/24 11:43 Pulse Oximetry 100 12/14/24 11:43 Oxygen Delivery Room Air 12/14/24 11:43 Temperature 98.7 F 12/14/24 15:40 Pulse Rate 86 12/14/24 17:39 Respiratory Rate 20 12/14/24 15:40 Blood Pressure 121/86 12/14/24 17:39 Pulse Oximetry 99 12/14/24 15:40 Oxygen Delivery Room Air 12/14/24 11:43 <Chantell Leal PA-C - Last Filed: 12/16/24 18:16> Vital Signs Temperature 97.4 F L 12/14/24 11:43 Pulse Rate 67 12/14/24 11:43 Respiratory Rate 18 12/14/24 11:43 Blood Pressure 112/75 12/14/24 11:43 Pulse Oximetry 100 12/14/24 11:43 Oxygen Delivery Room Air 12/14/24 11:43 Temperature 98.7 F 12/14/24 15:40 Pulse Rate 86 12/14/24 17:39 Respiratory Rate 20 12/14/24 15:40 Blood Pressure 121/86 12/14/24 17:39 Pulse Oximetry 99 12/14/24 15:40 Oxygen Delivery Room Air 12/14/24 11:43 <Saleem Del Rio MD - Last Filed: 12/31/24 19:13> MDM - Syncope MDM Narrative Medical decision making narrative: MSE by ISIDRO in triage. <Chantell Leal PA-C - Last Filed: 12/16/24 18:16> Lab Data Result diagrams: 12/14/24 13:51 12/14/24 13:51 <LANDON Wolf Last Filed: 12/16/24 18:16> Labs: Lab Results 12/14/24 12/14/24 12/14/24 Range/Units 13:51 14:09 14:12 WBC 10.6 H (4.5-10.0) K/mm3 RBC 6.21 H (4.2-5.4) M/mm3 Hgb 12.6 (12.0-15.0) g/dL Hct 42.2 (37.0-47.0) % MCV 68.0 L (80-100) fl MCH 20.3 L (26-34) pg MCHC 29.9 L (32-36) g/dl RDW 15.9 H (11.5-14.5) % Plt Count 287 (150-375) k/mm3 MPV 10.0 (7.4-10.4) fl Immature Gran % (Auto) 0.6 H (0-0.5) % Neut % (Auto) 72.6 (45.5-73.1) % Lymph % (Auto) 16.5 L (18.3-44.2) % Burke % (Auto) 3.5 (2.6-8.5) % Eos % (Auto) 5.9 H (0-4.4) % Baso % (Auto) 0.9 (0.2-1.2) % Lymph # (Auto) 1.75 (0.9-3.2) K/mm3 Burke # (Auto) 0.4 (0.1-0.6) K/mm3 Eos # (Auto) 0.6 H (0-0.3) K/mm3 Baso # (Auto) 0.1 (0.0-0.1) K/mm3 Abs Immat Gran (auto) 0.06 H (0.00-0.031) K/mm3 Absolute Neuts (auto) 7.7 H (1.3-6.7) K/mm3 Absolute Nucleated RBC 0.000 (0.0-0.012) K/mm3 Band Neutrophils % Not Reportable Nucleated RBC % 0.0 (0.0-0.2) % Platelet Estimate Adequate (Adequate) Hypochromasia 1+ Microcytosis 1+ (NORMAL) Ovalocytes 1+ Schistocytes None seen PT 13.8 (11.1-14.7) Seconds INR 1.0 APTT 26.5 (22.3-36.8) Seconds Sodium 138 (137-145) mmol/L Potassium 4.3 (3.4-5.0) mmol/L Chloride 104 (98-107) mmol/L Carbon Dioxide 23 (22-30) mmol/L Anion Gap 11 (4-12) mmol/L BUN 13 (7-17) mg/dL Creatinine 0.56 L (0.7-1.0) mg/dL Estim Creat Clear Calc 119 ml/min Estimated GFR > 60 (59 - ) Glucose 230 H (65-110) mg/dL Calcium 8.8 (8.4-10.2) mg/dL Magnesium 1.8 (1.6-2.3) mg/dL Total Bilirubin 0.6 (0.2-1.3) mg/dL AST 75 H (14-36) U/L ALT 111 H (6-35) U/L Alkaline Phosphatase 66 (38-126) U/L Troponin I < 0.012 (0.000-0.034) ng/mL Total Protein 7.0 (6.3-8.2) g/dL Albumin 4.4 (3.5-5.1) g/dL Urine Color Yellow (Yellow) Urine Appearance Cloudy H (Clear) Urine pH 5.5 (5.0-9.0) Ur Specific [place] 1.027 (1.001-1.035) Urine Protein 1+ H (Negative) mg/dL Urine Glucose (UA) 2+ H (Negative) mg/dL Urine Ketones Trace H (Negative) mg/dL Ur Blood (Man) 3+ H (Negative) Urine Nitrate Negative (Negative) Urine Bilirubin Negative (Negative) Urine Urobilinogen 1.0 (<2.0) mg/dL Leukocyte Esterase Rfl 2+ H (Negative) ROSIO/UL Urine RBC >100 H (0-2) /hpf Urine WBC 21-50 H (0-3) /hpf Ur Squamous Epith Cells Occasional (Few) /hpf Urine Bacteria 1+ H /hpf Urine Casts 0-2 POC Urine HCG, Qual Negative (Negative) <Chantell Leal PA-C - Last Filed: 12/16/24 18:16> Lab Results 12/14/24 12/14/24 12/14/24 Range/Units 13:51 14:09 14:12 WBC 10.6 H (4.5-10.0) K/mm3 RBC 6.21 H (4.2-5.4) M/mm3 Hgb 12.6 (12.0-15.0) g/dL Hct 42.2 (37.0-47.0) % MCV 68.0 L (80-100) fl MCH 20.3 L (26-34) pg MCHC 29.9 L (32-36) g/dl RDW 15.9 H (11.5-14.5) % Plt Count 287 (150-375) k/mm3 MPV 10.0 (7.4-10.4) fl Immature Gran % (Auto) 0.6 H (0-0.5) % Neut % (Auto) 72.6 (45.5-73.1) % Lymph % (Auto) 16.5 L (18.3-44.2) % Burke % (Auto) 3.5 (2.6-8.5) % Eos % (Auto) 5.9 H (0-4.4) % Baso % (Auto) 0.9 (0.2-1.2) % Lymph # (Auto) 1.75 (0.9-3.2) K/mm3 Burke # (Auto) 0.4 (0.1-0.6) K/mm3 Eos # (Auto) 0.6 H (0-0.3) K/mm3 Baso # (Auto) 0.1 (0.0-0.1) K/mm3 Abs Immat Gran (auto) 0.06 H (0.00-0.031) K/mm3 Absolute Neuts (auto) 7.7 H (1.3-6.7) K/mm3 Absolute Nucleated RBC 0.000 (0.0-0.012) K/mm3 Band Neutrophils % Not Reportable Nucleated RBC % 0.0 (0.0-0.2) % Platelet Estimate Adequate (Adequate) Hypochromasia 1+ Microcytosis 1+ (NORMAL) Ovalocytes 1+ Schistocytes None seen PT 13.8 (11.1-14.7) Seconds INR 1.0 APTT 26.5 (22.3-36.8) Seconds Sodium 138 (137-145) mmol/L Potassium 4.3 (3.4-5.0) mmol/L Chloride 104 (98-107) mmol/L Carbon Dioxide 23 (22-30) mmol/L Anion Gap 11 (4-12) mmol/L BUN 13 (7-17) mg/dL Creatinine 0.56 L (0.7-1.0) mg/dL Estim Creat Clear Calc 119 ml/min Estimated GFR > 60 (59 - ) Glucose 230 H (65-110) mg/dL Calcium 8.8 (8.4-10.2) mg/dL Magnesium 1.8 (1.6-2.3) mg/dL Total Bilirubin 0.6 (0.2-1.3) mg/dL AST 75 H (14-36) U/L ALT 111 H (6-35) U/L Alkaline Phosphatase 66 (38-126) U/L Troponin I < 0.012 (0.000-0.034) ng/mL Total Protein 7.0 (6.3-8.2) g/dL Albumin 4.4 (3.5-5.1) g/dL Urine Color Yellow (Yellow) Urine Appearance Cloudy H (Clear) Urine pH 5.5 (5.0-9.0) Ur Specific [place] 1.027 (1.001-1.035) Urine Protein 1+ H (Negative) mg/dL Urine Glucose (UA) 2+ H (Negative) mg/dL Urine Ketones Trace H (Negative) mg/dL Ur Blood (Man) 3+ H (Negative) Urine Nitrate Negative (Negative) Urine Bilirubin Negative (Negative) Urine Urobilinogen 1.0 (<2.0) mg/dL Leukocyte Esterase Rfl 2+ H (Negative) ROSIO/UL Urine RBC >100 H (0-2) /hpf Urine WBC 21-50 H (0-3) /hpf Ur Squamous Epith Cells Occasional (Few) /hpf Urine Bacteria 1+ H /hpf Urine Casts 0-2 POC Urine HCG, Qual Negative (Negative) <Saleem Del Rio MD - Last Filed: 12/31/24 19:13> Discharge Plan Discharge Clinical Impression: Syncope, UTI (urinary tract infection), Acute hyperglycemia <Chantell Leal PA-C - Last Filed: 12/16/24 18:16> Patient Disposition: Home <LANDON Wolf Last Filed: 12/16/24 18:16> Condition: Stable <Chantell Leal PA-C - Last Filed: 12/16/24 18:16> Instructions: Antibiotic Form, Urinary Tract Infection in Women (ED), Syncope (ED), Nondiabetic Hyperglycemia (ED) <Chantell Leal PA-C - Last Filed: 12/16/24 18:16> Additional Instructions: Antibiotic as directed for the urinary tract infection. Drink plenty of fluids. Follow a diabetic diet. Have close follow-up with primary care physician for additional workup to determine if you have diabetes. If you have any worsening symptoms then please call or return to the emergency department. <LANDON Wolf Last Filed: 12/16/24 18:16> Patient Language: Polish <Chantell Leal PA-C - Last Filed: 12/16/24 18:16> Prescriptions: New cephalexin 500 mg capsule 500 mg PO Q8H 7 Days Qty: 21 0RF <Chantell Leal PA-C - Last Filed: 12/16/24 18:16> Follow-up/Referrals: Ochvladimir,Mert Villalta MD [Primary Care Provider] - <Chantell Leal PA-C - Last Filed: 12/16/24 18:16>
--- NOTE | 2024-12-14 13:19 | ECG_ITS ---
Test Date: 2024-12-14 13:52:47 Measurements Intervals [place] Rate: 77 P: 38 DE: 150 QRS: 28 QRSD: 78 T: 12 QT: 374 QTc: 424 Interpretive Statements SINUS RHYTHM NONSPECIFIC T-WAVE ABNORMALITY Compared to ECG 12/14/2024 10:58:28 NO SIGNIFICANT CHANGES Electronically Signed On 12-14-2024 14:28:46 CDT by Jasper Hernandez M.D.
--- OUTSIDE RECORDS SUMMARY | 2024-12-14 13:31 | XMS_ITS | Clinical Summary ---
Author Organization [facility] Address [address] [place] [address] Care Team Providers Care Accordion Repairer Name Role Phone Unavailable Primary Care Provider Unavailabl e Allergies No known active allergies Medications loratadine (CLARITIN) 10 mg tablet 1 Tab daily. 01/13/2014 Active ranitidine HCl (ZANTAC) 150 mg Capsule Take 1 Cap by mouth 2 times daily. 60 Cap 1 02/07/2014 Active BIOTIN/SILIC/CY BISWAS/LUT/MVMIN (GUEG-AVEZG-VND TEIN-LUT-MV,MIN ORAL) Take by mouth. Active ibuprofen [...] Comments Blood Pressure 113/69 08/20/2019 11:37 AM PHYSICIST CRYOGENICS Pulse 90 08/20/2019 12:51 PM PHYSICIST CRYOGENICS Temperature 37.6 C (99.6 F) 08/20/2019 12:51 PM PHYSICIST CRYOGENICS Respiratory Rate 16 08/20/2019 11:37 AM PHYSICIST CRYOGENICS Oxygen Saturation 97% 08/20/2019 11:37 AM PHYSICIST CRYOGENICS Inhaled Oxygen Concentration - - Weight 77.1 kg (170 lb) 08/20/2019 9:22 AM PHYSICIST CRYOGENICS Height 157.5 cm (5' 2) 08/20/2019 9:22 AM PHYSICIST CRYOGENICS Body Mass Index 31.09 08/20/2019 9:22 AM PHYSICIST CRYOGENICS Plan of Treatment Health Maintenance Due Date [...] patient's age to complete this topic Insurance [facility]
--- OUTSIDE RECORDS SUMMARY | 2024-12-14 13:31 | XMS_ITS | Clinical Summary ---
Author Organization [facility] Address [address] [place] [address] Care Team Providers Care Cook Ice Cream Name Role Phone No, Physician Primary Care Provider Kenia Alfaro MD, Rolando Mccarty Unavailable Allergies No known active allergies Medications 28 mg iron- 800 mcg tablet Take 1 tablet by mouth daily 1 Active True Metrix Glucose Meter misc TEST FASTING AND 1 HOUR AFTER MEALS 0 Active pen needle, diabetic 33 gauge x 5/32 needle 1 INJECTION DAILY DIRECTED 30 each 1 Active PNV with mwzstob-popp-GW 27 mg iron- 1 mg tabletIndicatio ns:Vitamin [...] recommendations. Assessment & Plan (09/25/2020 1:35 PM RESEARCH PHYSICIST): BS log reviewed with elevated fastings and breakfast PCs. Will start NPH 10u qHS today. hypoglycemic precautions reviewed. MFM RN to room for insulin teaching. Rx placed. Patient has appointment with primary OB tomorrow and will discuss timing for IOL. Assessment & Plan (09/11/2020 6:10 PM RESEARCH PHYSICIST): BS log reviewed with Dr. Escudero. Plan [...] [x] Blue Team Referring Provider: Rolando Aquino [phone] [] or Medicare Insurance [x] Dating Criteria: [...] Administration Dates Next Due Influenza, Unspecified 05/30/2020 [employer] ([employer]) SARS-CoV-2 Vaccination 05/07/2022 MMR 10/01/2020(Deferred: No [...] often do you attend chur ch or taoist services? Never 07/29/2022 Do you belong to any clubs o r organizations such as methodist groups, unions, fraternal or athletic groups, or [...] place to sleep or slept in a usp (including now)? No 07/29/2022 Personal Safety Answer [...] 8 9 NGUYE N,GIR [facility] Complications:None Delivery Location:[facility] Main C ampus ([facility] 58LD) 2022 Term 39w 4d 0h 08m 0h 03m/0h 05m 3.22 kg (7 lb 1.6 oz) M Vag-S pont Epidur al N Livin g 8 9 NGUYE N,BOY Laura Knott MD Complications:None Delivery Location:[facility] Main C ampus ([facility] 58LD) Last Filed Vital Signs Vital Sign Reading Time Taken Comments Blood Pressure 122/80 07/30/2022 9:10 AM RESEARCH PHYSICIST Pulse 75 07/30/2022 9:10 AM RESEARCH PHYSICIST Temperature 36.7 C (98.1 F) 07/30/2022 9:10 AM RESEARCH PHYSICIST Respiratory Rate 16 07/30/2022 9:10 AM RESEARCH PHYSICIST Oxygen Saturation 98% 07/30/2022 9:10 AM RESEARCH PHYSICIST Inhaled Oxygen Concentration - - Weight 91.5 kg (201 lb 12.8 oz) 023 11:55 PM RESEARCH PHYSICIST Height 157.5 cm (5' 2) 07/27/2022 11:5 5 PM RESEARCH PHYSICIST Body Mass Index 36.91 07/27/2022 11:55 PM RESEARCH PHYSICIST Plan of Treatment Health Maintenance Due Date [...] Diagnosis Comments EGFR STAT 07/27/2022 9:06 PM RESEARCH PHYSICIST HEPATITIS C ANTIBODY Routine 02/29/2020 from Last 3 Months or Most Recently Relevant to Health Maintenance Results * eGFR (07/27/2022 9:06 PM RESEARCH PHYSICIST) eGFR >90 90 - 130 mL/min/1. 73 m2 ESHA [facility] Comment: Interpretive Data Reference Interval Normal [...] last reviewed 2021. Blood 07/27/2022 9:06 PM RESEARCH PHYSICIST 07/27/2022 9:53 PM RESEARCH PHYSICIST us Dena Rivas MD LAB BLOOD ORDERABLES Fi nal Result Performing Organization Address City/State/ZIP Co fl Phone Number [facility] Department [place] [address] * Hepatitis C antibody (02/29/2020) SCRIBED HCV ab non-reacti ve Blood specimen (specimen) us Rolando Aquino Jr., MD LAB MICROBIOLOGY - GENERAL ORDERABLES Final Result from Last 3 Months or Most Recently Relevant to Health Maintenance Insurance [facility] DUAL COMPLETE [id number] [facility] MEDICARE Address: [address] [address] [place] [address] Advance Directives For more information, please contact: [phone] * Full Code (Latest Code Status on [...] in case of cardiopulmonary arrest Care Teams Cook Ice Cream Relationship Specialty Start Date End Date No, Physician PCP - General 04/25/20 Roalndo Aquino Jr., MD [address] [place] [id number] Referring Physician Obstetrics and Gynecology 04/25/20
--- OUTSIDE RECORDS SUMMARY | 2024-12-14 13:31 | XMS_ITS | Clinical Summary ---
Author Organization [facility] Address [address] [id number] Phone Care Team Providers Care Facility Manager Histology Name Role Phone Mehran Mera NP Primary Care Provider [phone] Allergies No known active allergies Medications Lancets [...] (09/18/2022): Inserted in clinic 09/18/22 Lot # [id number] Exp: [id number] 13 PUPP (pruritic urticarial pa pules and plaques of ) ([facility]) 07/03/2022 Overview (07/03/2022): Given triamcinolone ointment rx Susceptible to varicella (no n-immune), currently ([facility]) 03/18/2022 ([facility]) 10/28/2021 Supervision of high-risk pre gnancy, unspecified trimester ([facility]) 08/29/2020 Gestational diabetes mellitus (GDM), antepartum ([facility]) 08/03/2020 Overview (07/03/2022): Continue metformin 1000 [...] reassuring today, MARIETTA wnl. Arranging testing at [facility]; delay on their end after order was sent at last visit. Allergic rhinitis 11/25/2017 Obesity 11/25/2017 GERD (gastroesophageal reflux disease) 4 Resolved Problems Problem Noted Date Diagnosed Date Resolved Date Supervision of normal first ([facility]) 02/29/2020 05/28/2022 Encounters Date Type Department Care Team Description 10/26/[address] [address] Claudia Jennings Appointment Request from [...] Comments Blood Pressure 103/72 08/21/2022 10:19 AM FORM COVERER Pulse 91 08/21/2022 10:19 AM FORM COVERER Temperature 36.7 C (98 F) 08/21/2022 10:19 AM FORM COVERER Respiratory Rate 16 02/29/2020 2:51 PM CDT Oxygen Saturation 98% 08/21/2022 10:19 AM FORM COVERER Inhaled Oxygen Concentration - - Weight 79.9 kg (176 lb 3.2 oz) 08/21/2022 10:19 AM FORM COVERER Height 154.9 cm (5' 1) 08/21/2022 10:19 AM FORM COVERER Body Mass Index 33.29 08/21/2022 10:19 AM FORM COVERER Plan of Treatment Health Maintenance Due Date [...] 3 SPECIMENS, (75G) Routine 08/21/2022 9:33 AM FORM COVERER HEPATITIS C AB W/RFL RNA, PCR W/RFL [...] TEST, 3 SPECIMENS, (75G) (08/21/2022 9:33 AM FORM COVERER) GLUCOSE, FASTING 122(H) 65 - 99 mg/dL [facility] GLUCOSE 1HR P 75GM 160 mg/dL [facility] GLUCOSE 2HR P 75GM 123 <140 mg/dL [facility] COMMENT [facility] Comment: [place] [employer] Diagnostic Criteria for Diabetes Mellitus Glucose Value (mg/dL) Interpretation Fasting 1 Hr 2 Hr Tolerance Tolerance --------- --------- --------- Normal <100 Not Established <140 Impaired Fasting 100-125 Impaired Tolerance 140-199 Diabetes >II=561* >CI=997* * Must be confirmed by testing on a subsequent day. 08/21/2022 9:33 AM FORM COVERER 08/21/2022 9:34 AM FORM COVERER Coral Chaudhary MD LAB BLOOD ORDERABLES Final Result Performing Organization Address [facility]/ZIP Co de Phone Number [facility] [place] [address] [facility] [place] [address], * HIV 1/2 ANTIGEN/ANTIBODY,FOURTH GENERATION W/RFL (03/18/2022 [...] purpose. For additional information please refer to http://education.Memoright/faq/EMZ670 (This link is being provided for informational/ educational purposes only.) The performance of this assay has not been clinically validated in patients less than 2 years old. 03/18/2022 2:47 PM CDT 03/18/2022 2:47 PM CDT Emile Santos MD LAB BLOOD ORDERABLES Final Re sult Performing Organization Address City/[facility]/ZIP Co de Phone Number [facility] * HEPATITIS C AB W/RFL RNA, PCR W/RFL GENOTYPE,LIPA (03/18/2022 2:47 PM CDT) SIGNAL TO CUT-OFF 0.01 <1.00 [facility] Comment:HCV antibody was non -reactive. There is no laboratory evidence of HCV infection. In most cases, no further action is required. However, if recent HCV exposure is suspected, a test for HCV RNA (test code 88223) is suggested. For additional information, please refer to http://education.Zeis Excelsa/faq/HXI217 (This link is being provided for informational/ educational purposes only.) HEPATITIS C AB NON-REACTI VE NON-REACT JESIKA [facility] 03/18/2022 2:47 PM CDT 03/18/2022 2:47 PM CDT Emile Santos MD LAB BLOOD ORDERABLES Final Re sult Performing Organization Address [facility] de Phone Number [facility] * HPV RNA, HR E6/E7, TMA (02/29/2020 4:12 PM CDT) HPV RNA, HR E6/E7, TMA Not Detected Not Detected [facility] Comment:This test was perfor med using the APTIMA HPV Assay ([employer] This assay detects E6/E7 viral messenger RNA (mRNA) from 14 high-risk HPV types (16,18,31,33,35,39,45,51,52,56,58,59,66,68). The analytical performance characteristics of this assay have been determined by [employer]. The modifications have not been cleared or approved by the FDA. This assay has been validated pursuant to the CLIA regulations and is used for clinical purposes. 02/29/2020 4:12 PM CDT 02/29/2020 4:12 PM CDT Rolando Aquino Jr., MD LAB MICROBIOLOGY - GENERAL ORDERABLES Final Result Performing Organization Address [facility] Co de Phone Number [facility] * [...] for gregory luation. Endocervical/transformation zone component present. ASSOCIATE PROFESSOR OF RADIOLOGY [facility] Comment:LMT, CT(ASCP) CT scr eening location: [place] [address] [place] [address] CLINICAL INFORMATION [facility] Comment: PREV. BX NONE [facility] PAP SMEAR [facility] Comment:Negative for intraep ithelial lesion or malignancy. LMP [facility] Comment:N/A SOURCE [facility] Comment:Cervix COMMENT [facility] Comment:This Pap test has be en evaluated with computer assisted technology. PREV. PAP [facility] Comment:NONE 02/29/2020 4:12 PM CDT 02/29/2020 4:12 PM CDT Rolando Aquino Jr., MD LAB MICROBIOLOGY - GENERAL ORDERABLES Final Result Performing Organization Address City/[facility] Co de Phone Number [facility] * HEPATITIS B SURFACE ANTIGEN W/REFL CONFIRM (02/29/2020 12:00 AM CDT) HEPATITIS B SURFACE AG NON-REACTI VE NON-REACTI VE [facility] 02/29/2020 02/29/2020 Rolando Aquino Jr., MD LAB BLOOD ORDERAB LES Final Result Performing Organization Address City/[facility]/ZIP Co de Phone Number [facility] from Last 3 Months or Most Recently Relevant to Health Maintenance Insurance [facility] Care Teams Facility Manager Histology Relationship Specialty Start Date End Date Mehran Mera NP [address] [place] [address] PCP - General Family Medicine 05/21/23
--- OUTSIDE RECORDS SUMMARY | 2024-12-14 13:31 | XMS_ITS | Clinical Summary ---
Author Organization [facility] Address [address] [place] [address] Care Team Providers Care Lobster Fisherman Name Role Phone Shruthi Carmen MD Primary Care Provider [phone] Source Comments [facility],non-owned Affiliates and Associated Physician Practices is amultiple site organization consisting of ambulatory clinics and hospital sitesin [place], [place], [place] and [place]. This disclosure is being madepursuant to the Care Everywhere program and may not contain all information available regarding this patient. Last updated 18.[facility] SignNow Social History Tobacco Use Types Packs/Day Years [...] patient's age to complete this topic Insurance [facility] Care Teams Lobster Fisherman Relationship Specialty Start Date End Date Shruthi Carmen MD [address] [place] [address] PCP - General 02/09/20
--- OUTSIDE RECORDS SUMMARY | 2024-12-14 13:31 | XMS_ITS | Referral Summary ---
Author Organization [facility] Address [address] [place] [address] Care Team Providers Care Inspector [employer]um [employer] Name Role Phone No, Physician Primary Care Provider [phone] Kenia Alfaro MD, Rolando Mccarty Unavailable Allergies No known active allergies Medications 28 mg iron- 800 mcg tablet Take 1 tablet by mouth daily 1 Active True Metrix Glucose Meter misc TEST FASTING AND 1 HOUR AFTER MEALS 0 Active pen needle, diabetic 33 gauge x 5/32 needle 1 INJECTION DAILY DIRECTED 30 each 1 Active PNV with [id number] 27 mg iron- 1 mg tabletIndicatio ns:Vitamin [...] recommendations. Assessment & Plan (09/25/2020 1:35 PM STORE CUSTODIAN): BS log reviewed with elevated fastings and breakfast PCs. Will start NPH 10u qHS today. hypoglycemic precautions reviewed. MFM RN to room for insulin teaching. Rx placed. Patient has appointment with primary OB tomorrow and will discuss timing for IOL. Assessment & Plan (09/11/2020 6:10 PM STORE CUSTODIAN): BS log reviewed with Dr. Escudero. Plan [...] [x] Blue Team Referring Provider: Rolando Aquino [phone] [] or Medicare Insurance [x] Dating Criteria: [...] Administration Dates Next Due Influenza, Unspecified 05/30/2020 Gen One Cig (J&J) SARS-CoV-2 Vaccination 05/07/2022 MMR 10/01/2020(Deferred: No [...] often do you attend chur ch or church services? Never 07/29/2022 Do you belong to any clubs o r organizations such as sikhism groups, unions, fraternal or athletic groups, or [...] place to sleep or slept in a intermediate (including now)? No 07/29/2022 Personal Safety Answer [...] Comments Blood Pressure 122/80 07/30/2022 9:10 AM STORE CUSTODIAN Pulse 75 07/30/2022 9:10 AM STORE CUSTODIAN Temperature 36.7 C (98.1 F) 07/30/2022 9:10 AM STORE CUSTODIAN Respiratory Rate 16 07/30/2022 9:10 AM STORE CUSTODIAN Oxygen Saturation 98% 07/30/2022 9:10 AM STORE CUSTODIAN Inhaled Oxygen Concentration - - Weight 91.5 kg (201 lb 12.8 oz) 023 11:55 PM STORE CUSTODIAN Height 157.5 cm (5' 2) 07/27/2022 11:5 5 PM STORE CUSTODIAN Body Mass Index 36.91 07/27/2022 11:55 PM STORE CUSTODIAN Plan of Treatment Not on file Procedures Procedure Name Priority Date/Time Associated Diagnosis Comments EGFR STAT 07/27/2022 9:06 PM STORE CUSTODIAN HEPATITIS C ANTIBODY Routine 02/29/2020 from Last 3 Months or Most Recently Relevant to Health Maintenance Results * eGFR (07/27/2022 9:06 PM STORE CUSTODIAN) eGFR >90 90 - 130 mL/min/1. 73 m2 [facility] Comment: Interpretive Data Reference Interval Normal >/= [...] last reviewed 2021. Blood 07/27/2022 9:06 PM STORE CUSTODIAN 07/27/2022 9:53 PM STORE CUSTODIAN us Dena Rivas MD LAB BLOOD ORDERABLES Fi nal Result [facility] Department [place] [address] * Hepatitis C antibody (02/29/2020) SCRIBED HCV ab non-reacti ve Blood specimen (specimen) us Rolando Aquino Jr., MD LAB MICROBIOLOGY - GENERAL ORDERABLES Final Result from Last 3 Months or Most Recently Relevant to Health Maintenance Insurance [facility] DUAL COMPLETE [id number] [place] [address] Advance Directives For more information, please contact: [phone] * Full Code (Latest Code Status on [...] in case of cardiopulmonary arrest Care Teams Inspector Aluminum Boat Relationship Specialty Start Date End Date No, Physician PCP - General 04/25/20 Rolando Aquino Jr., MD [address] [place] [address] Referring Physician Obstetrics and Gynecology 04/25/20
[2024-12-14 14:07] LABS: Basophils Absolute Auto 0.1 K/mm3 (0.0-0.1); Basophils Percent Auto 0.9 % (0.2-1.2); Eosinophils Absolute Auto 0.6 K/mm3 (0-0.3); Eosinophils Percent Auto 5.9 % (0-4.4); Hematocrit 42.2 % (37.0-47.0); Hemoglobin 12.6 g/dL (12.0-15.0); Immature Granulocyte Absolute 0.06 K/mm3 (0.00-0.031); Immature Granulocyte Percent A 0.6 % (0-0.5); Lymphocytes Absolute Auto 1.75 K/mm3 (0.9-3.2); Lymphocytes Percent Auto 16.5 % (18.3-44.2); Mean Corpuscular HGB Conc 29.9 g/dl (32-36); Mean Corpuscular Hemoglobin 20.3 pg (26-34); Monocytes Absolute Auto 0.4 K/mm3 (0.1-0.6); Monocytes Percent Auto 3.5 % (2.6-8.5); Neutrophils Absolute Auto 7.7 K/mm3 (1.3-6.7); Neutrophils Percent Auto 72.6 % (45.5-73.1); Platelet Count Result 287 k/mm3 (150-375); Red Blood Count 6.21 M/mm3 (4.2-5.4); Red Cell Distribution Width 15.9 % (11.5-14.5); White Blood Count 10.6 K/mm3 (4.5-10.0)
[2024-12-14 14:14] LABS: BEDSIDEPREGUCG Negative (Negative)
[2024-12-14 14:20] LABS: Add Urine Microscopic? YES; Appearance Urine Cloudy (Clear); Bacteria Urine 1+ /hpf; Bilirubin Urine Negative (Negative); Blood Urine 3+ (Negative); Color Urine Yellow (Yellow); Glucose Urine UA 2+ mg/dL (Negative); Ketones Urine Trace mg/dL (Negative); Leukocyte Esterase Ur 2+ LEU/UL (Negative); Nitrate Urine Negative (Negative); Non Pathogenic Casts 0-2; Protein Urine 1+ mg/dL (Negative); RBC Urine >100 /hpf (0-2); Specific Grav Ur 1.027 (1.001-1.035); Squamous Epithelial Cell Urine Occasional /hpf (Few); WBC Urine 21-50 /hpf (0-3); pH Urine 5.5 (5.0-9.0)
[2024-12-14 14:21] LABS: Hypochromasia 1+; Microcytosis 1+ (NORMAL); Ovalocytes 1+; Platelet Estimate Adequate (Adequate); Schistocytes None Seen
[2024-12-14 14:23] LABS: Alanine Aminotransferase 111 U/L (6-35); Albumin Level 4.4 g/dL (3.5-5.1); Alkaline Phosphatase 66 U/L (38-126); Anion Gap 11 mmol/L (4-12); Aspartate Amino Transferase 75 U/L (14-36); Bilirubin,Total 0.6 mg/dL (0.2-1.3); Blood Urea Nitrogen 13 mg/dL (7-17); Calcium 8.8 mg/dL (8.4-10.2); Carbon Dioxide 23 mmol/L (22-30); Chloride 104 mmol/L (98-107); Estimated CRCL calculation 119 ml/min; Estimated Glomerular Filt Rate > 60; Glucose 230 mg/dL (65-110); Magnesium 1.8 mg/dL (1.6-2.3); Potassium 4.3 mmol/L (3.4-5.0); Sodium 138 mmol/L (137-145)
[2024-12-14 14:35] LABS: Troponin I < 0.012 ng/mL (0.000-0.034)
[2024-12-14 14:38] LABS: Partial Thromboplastin Time 26.5 Seconds (22.3-36.8); Prothrombin Time 13.8 Seconds (11.1-14.7)
[2024-12-14 15:40] VITALS: BP 118/70; PULSE 75; RESP 20; TEMP 37.1; O2SAT 99
[2024-12-14 17:37] VITALS: BP 119/80; BP 119/90; PULSE 76; PULSE 80
[2024-12-14 17:39] VITALS: BP 121/86; PULSE 86
[2024-12-14] MEDS: CEPHALEXIN 500 MG CAPSULE PO (18:09)
== END 2024-12-14 18:15 | disposition home or self-care (01) ==
PROVIDERS: Physician Assistant; Emergency Provider Emergency Medicine; PCP Internal Medicine Cardiovascular Disease
DX: R55 Syncope and collapse (principal); N39.0 Urinary tract infection, site not specified; R73.9 Hyperglycemia, unspecified; R94.31 Abnormal electrocardiogram [ECG] [EKG]
CPT/HCPCS: 36415; 70450; 71046; 80053; 81001; 81025; 83735; 84484; 85025; 85610; 85730; 87086; 93005; 99284; A9270